=== PATIENT | female | born 1975 | race African-American/Black ===

== ENCOUNTER 2022-12-13 11:29 | Emergency (ER) | payer BC, OTHER ==
[~2022-12-13] VITALS: Ht 177.8 cm; Wt 64.0 kg
[2022-12-13 11:36] VITALS: BP 157/72
[2022-12-13] MEDS ORDERED: SODIUM CHLORIDE 0.9% 1,000 ML IV ONE (12:30)
[2022-12-13 12:40] LABS: BASOPHILS % 0.3 % (0.0-2.0); EOSINOPHILS % 2.3 % (0.0-5.0); HEMATOCRIT. 37.6 % (36.0-48.0); HEMOGLOBIN. 12.6 g/dL (12.0-16.0); LYMPHOCYTES % 15.2 % (20.0-50.0); MEAN CORPUSCULAR HEMOGLOBIN 27.1 pg (28.0-32.0); MEAN CORPUSCULAR VOLUME 81.3 fL (81.0-99.0); MEAN PLATELET VOLUME 8.1 fl (7.4-10.4); MONOCYTES % 4.9 % (2.0-8.0); NEUTROPHILS % 77.3 % (40.0-76.0); PLATELET 268 x1000/uL (130-400); RED BLOOD CELL COUNT 4.63 mill/uL (4.2-5.4); RED CELL DISTRIBUTION WIDTH 14.7 % (11.6-14.6)
[2022-12-13 12:44] LABS: CHLORIDE 107 mEq/L (98-107)
== END 2022-12-13 15:18 | disposition home or self-care (01) ==
LOC: ER 11:53
DX: R55 Syncope and collapse (principal)
CPT/HCPCS: 36415; 70450; 71045; 80053; 83880; 84484; 85025; 93005; 99285; J7030